=== PATIENT | female | born 1940 | race Two or more races ===

== ENCOUNTER 2019-09-04 07:00 | Day surgery (SDC) | payer OTHER ==
[~2019-09-04 07:00] MED LIST: CAMBIA50 MG PO; CYCLOBENZAPRINE PO; FORTAMET500 MG PO; METFORMIN HCL500 MG PO; PROTONI PO; SIMVASTA; SINGULAIR10 MG PO; SYNTHROID88 MCG PO; TENORMIN50 M1 PO; ZESTRIL20 MG PO; ZESTRIL40 M1 PO
== END 2019-09-04 17:00 | disposition home or self-care (01) ==
LOC: CIR.AMB 07:00
PROVIDERS: ATTEND Colon & Rectal Surgery
DX: D12.9 Benign neoplasm of anus and anal canal (principal); K64.1 Second degree hemorrhoids; Z20.828 Contact with and (suspected) exposure to other viral communicable diseases